=== PATIENT | female | born 1940 | race Caucasian/White ===

== ENCOUNTER → 2016-11-07 | Outpatient (CLI) | payer MEDICARE, OTHER ==
[2015-02-27 15:00] VITALS: BP 132/58
[~2016-11-07] MED LIST: ACET500T33 PO; ASPI81TA50 PO; BUDE10.2 IH; CARV3.122 PO; DIPH25CA58 PO; FOLI20CA PO; GARL5000 PO; HYDR12.53 PO; METF500T4 PO; MOME17SP NS; MULT-393 PO; OMEG1CAP28 PO; OMEP20CA9 PO; Oxycodone Hcl/Acetaminophen PO; PROAIR HFA8.5 GM IH; SIMV40TA3 PO; Sulfamethoxazole/Trimethoprim PO
--- NOTE | 2016-11-07 12:18 | RAD ---
Indication: Renal cyst. Comparison is made with prior renal ultrasound from 02/01/2016. The right kidney measures 12.3 x 5.3 x 5.7 cm and the left kidney measures 11.4 x 4.7 x 6.3 cm. There does appear to be some cortical thinning bilaterally. The partially calcified mass in the lower pole right kidney is again noted measuring approximately 1.3 x 1.5 x 1.9 cm. This compares with 1.7 cm on exam from February 19, 2016. This could be owing to slight differences in measurement technique. No new mass is seen. There is no hydronephrosis. No calculi are seen. The bladder is unremarkable. Impression: Stable complex partially calcified mass in the lower pole the right kidney when compared with examination from 02/01/2016. Continued follow-up is recommended to ensure stability.
== END | disposition home or self-care (01) ==
LOC: US 17:27
PROVIDERS: ATTEND Urology
DX: N28.1 Cyst of kidney, acquired (principal)
CPT/HCPCS: 76770

== ENCOUNTER → 2018-05-28 | Outpatient (CLI) | payer MEDICARE, OTHER ==
[2015-02-27 15:00] VITALS: BP 132/58
[~2018-05-28] MED LIST changes: +CARV3.1210 PO; -CARV3.122 PO; -HYDR12.53 PO; +HYDR12.575 PO; +METF500T16 PO; -METF500T4 PO
[2018-05-28 11:11] LABS: CALCIUM 11.1 mg/dL (8.5-10.1); CREATININE 0.9 mg/dL (0.6-1.0); POTASSIUM 4.5 mmol/L (3.5-5.1)
[2018-05-29 03:15] LABS: CALCIUM PTH 11.1 mg/dL (8.7-10.3); CREATININE PTH 0.74 mg/dL (0.57-1.00); PHOSPHORUS PTH 3.2 mg/dL (2.5-4.5); PTH INTACT 69 pg/mL (15-65)
== END | disposition home or self-care (01) ==
LOC: LAB 10:12
PROVIDERS: ATTEND Family Medicine
DX: E83.52 Hypercalcemia (principal)
CPT/HCPCS: 36415; 80048; 82310; 83970

== ENCOUNTER 2018-06-17 17:26 | Emergency (ER) | payer MEDICARE, OTHER ==
[~2018-06-17] VITALS: Ht 165.1 cm; Wt 104.3 kg
[~2018-06-17 17:26] MED LIST changes: +ALBU2.5V8 IH; -OMEG1CAP28 PO; +OMEP20CA10 PO; -OMEP20CA9 PO; -PROAIR HFA8.5 GM IH
[2018-06-17 18:55] VITALS: BP 175/119
[2018-06-17] MEDS ORDERED: DIPHTH,PERTUSS(ACELL),TET TOX 0.5 ML DISP.SYRIN. VAX IM ONE ×2 (19:28→19:30)
[2018-06-17] MEDS ORDERED: LIDOCAINE 1%/EPI 1:100,000 20 ML VIAL. ONE (19:28)
[2018-06-17] MEDS ORDERED: LIDOCAINE 1% Multi-Dose 20 ML VIAL. INJ ONE (19:30)
[2018-06-17] MEDS ORDERED: LIDOCAINE/EPI/TETRACAINE TOPICAL GEL 3 ML. TP ONE (19:30)
[2018-06-17] MEDS ORDERED: ACETAMINOPHEN 325 MG TABLET. PO ONE (19:30)
--- NOTE | 2018-06-17 22:29 | PHYS DOC ---
Past Medical History Past Medical History: Asthma, Bronchitis, GERD, High Cholesterol, Hypertension Past Surgical History: Knee Replacement, Other Additional Past Surgical Histo: Back surgery x 2. Alcohol Use: None Drug Use: None Adult General Chief Complaint Chief Complaint: MECHANICAL FALL HPI HPI 77-year-old female presents to ER via POV following a mechanical fall. She reports she tripped over a parking block while at a local car dealership causing her to fall forward. Patient presents with forehead laceration, right hand and left knee injuries, with abrasions and contusions. She denies loss of consciousness. She reports she was checked out at the scene by EMS however chose to come to the hospital via private vehicle. He reports somebody from the dealership drove her to the hospital. She is currently denying any dizziness, lightheadedness, nausea, or vision changes. She reports she does have pain at laceration site denies headache or tinnitus. She denies any symptoms prior to the fall. Patient is uncertain of her last tetanus but does not feel it was within the past 5 years. She denies any [id number] medications prior to arrival. Review of Systems Review of Systems Constitutional: Denies fatigue/weakness. Denies LOC Eyes: Denies change in visual acuity, redness, or eye pain [] HENT: Reports head pain at laceration rt forehead. Denies nasal congestion or sore throat. Denies tinnitus Respiratory: Denies cough or shortness of breath [] Cardiovascular: Denies CP/palpitations GI: Denies abdominal pain, nausea, vomiting. Denies incontinence bowel/bladder : Denies urinary sxs Musculoskeletal: Denies back pain. Reports lt knee and rt hand pain. Reports rt side neck pain- denies inability to perform ROM Integument: Denies rash or skin lesions [] Neurologic: Denies headache, focal weakness or sensory changes. Denies dizziness All other systems were reviewed and found to be within normal limits, except as documented in this note. Current Medications Current Medications Current Medications Medications (Trade) Dose Ordered Sig/Jodie Start Time Stop Time Status Last Admin Dose Admin Acetaminophen (Tylenol) 650 mg 1X ONCE 06/17/18 19:30 06/17/18 19:31 DC 06/17/18 19:34 650 MG Diphtheria/ Tetanus/Acell Pertussis (Boostrix) 0.5 ml STK-MED ONCE 06/17/18 19:28 06/17/18 19:30 DC Lidocaine HCl (Lidocaine 1% 20ml Vial) 20 ml 1X ONCE 06/17/18 19:30 06/17/18 19:31 DC 06/17/18 19:30 20 ML Lidocaine/ Epinephrine (LIDOCAINE 1%-EPI 1:100,000 Multi-Dose) 20 ml STK-MED ONCE 06/17/18 19:28 06/17/18 19:30 DC Lidocaine/ Epinephrine (Let Topical) 3 ml 1X ONCE 06/17/18 19:30 18 19:31 DC 06/17/18 19:35 3 ML Allergies Allergies Allergies Coded Allergies Type Severity Reaction Last Updated Verified No Known Drug Allergies 02/13/14 No Physical Exam Physical Exam Constitutional: Well developed, well nourished, no acute distress, non-toxic appearance. [] HENT: Normocephalic, laceration to rt side forehead- no involvement of rt eye. Bilateral external ears normal, oropharynx moist, no oral injuries, nose normal. [] Eyes: 3mm PERRLA, EOMI- no pain with eye movements, no nystagmus, conjunctiva normal, no discharge. [] Neck: Normal range of motion, no tenderness mid cspine- tender on palp. rt lateral neck- no crepitus/palp. deformity, supple, no stridor. Trachea midline Cardiovascular: Heart rate regular rhythm, no murmur [] Lungs & Thorax: Bilateral breath sounds clear to auscultation. Resp. equal/ nonlabored Abdomen: Bowel sounds normal, soft, no tenderness Skin: Warm, dry Back: No tenderness mid line spine on palp. No palp. deformity- full ROM, no CVA tenderness. [] Extremities: Pelvis stable/nontender. No cyanosis, no clubbing, ROM intact. Abrasion to lt anterior knee- no palp. deformity. Pt is able to perform ROM. Swelling/ecchymosis at site. No bleeding. Rt hand palm surface with abrasion- tender on palp. No deformity. Full ROM of rt hand/wrist- pt reports she was bracing herself with rt hand during fall. No active bleeding. 2+ bilat. radial. 2+ bilat. dorsalis pedis/posterior tibial Neurologic: Alert and oriented X 3, normal motor function, normal sensory function, no focal deficits noted. [] Psychologic: Affect normal, judgement normal, mood normal. [] Current Patient Data Vital Signs EKG EKG [] Radiology/Procedures Radiology/Procedures PROCEDURE: CT HEAD AND CERVICAL SPINE WO Examination: CT HEAD AND CERVICAL SPINE WO History: S/P FALL, HEAD AND NECK PAIN Comparison/Correlation: 11/28/2011 CT head without contrast Findings: Axial images of the head and cervical spine were obtained without contrast. Sagittal and coronal reformatted images of the cervical spine were obtained. Left thyroid lobe 1.4 cm diameter nodule is present. Small nodules also seen. Atrophy is present. No intracranial hemorrhage, midline shift, or mass effect. Globes and optic nerves are unremarkable. Soft tissue swelling of the left forehead region is present. Soft tissue gas. There are are few punctate radiopaque foreign bodies at the medial region of soft tissue swelling. Atlantoaxial joint degenerative remodeling is present. Severe degenerative space narrowing from C3 to C7 is present. Effacement of the thecal sac noted due to endplate spurring. Moderate C2-C3 disc space narrowing. Severe bony encroachment on neural foramina is present from C2 to C3. No fracture or bone destruction. Soft tissues are unremarkable. Alignment is unremarkable. Disc osteophyte complex at C3-4 is mild. Impression: No intracranial hemorrhage. Advanced degenerative change of the cervical spine. No acute fracture. No malalignment. Left thyroid lobe nodule. Correlate with recent prior exams if available to assess stability. If stability is unknown, further evaluation with thyroid ultrasound should be considered. Electronically signed by: Darek Espinosa MD (06/17/2018 10:36 PM) [facility] DICTATED and SIGNED BY: CONSTANZA GARZA MD DATE: 06/17/1822280: Laceration Repair by me: Anesthesia: 1% lidocaine locally 2mL Location: Rt side Forehead Foreign body: None detected after copious irrigation and exploration Technique: Simple Interrupted Sutures #6 6.0 nylon Complexity: No subcutaneous sutures/mucosal repair/edge excision Post Closure Length: 4 cm Patient's bleeding was easily controlled in the department and there is no indication of anemia. No evidence of compartment syndrome, neurologic injury, vascular injury, open joint, tendon laceration, or foreign body. Patient is appropriate for outpatient follow up. 48 hour wound check. Scar minimization instructions given. Course & Med Decision Making Course & Med Decision Making Pertinent Labs and Imaging studies reviewed. (See chart for details) Patient was evaluated in the ER following a mechanical fall. Patient presented via POV after being evaluated at the scene by EMS. She denied any loss of consciousness and has had no focal neuro deficits while in the ER. Patient tolerated laceration repair well as right forehead laceration. She has had no change in mental status while in the ER. Patient was offered admission for further monitoring with regards to her head injury as she lives alone. Patient is adamant on home discharge as she has dogs at home and has had no dizziness, confusion, or nausea and vomiting. Patient states she feels comfortable with being discharged home stating if something changes with her condition she would call 911 for assistance. Imaging results were discussed with patient- no acute fxs or findings- degenerative findings reported. Patient is in no visible distress at time of discharge discussion. Education provided on signs and symptoms to return to ER. Discharge instructions were discussed. Patient to follow-up with primary care physician if symptoms persist or with any concerns. Pt was updated on tetanus and provided with dose of tylenol while in the ER. Ice pack was provided for rt hand/lt knee contusion. Pt had steady unassisted gait while in the ER- she remained PMS intact all extremities with full ROM. Dragon Disclaimer Dragon Disclaimer This electronic medical record was generated, in whole or in part, using a voice recognition dictation system. Departure Departure Impression: Primary Impression: Knee contusion Additional Impressions: Fall Head injury Laceration Contusion of hand, right Disposition: 01 HOME, SELF-CARE Condition: STABLE Referrals: LUCIE FULLER MD (PCP) Patient Instructions: Contusion, Fall Prevention and Home Safety, Hand Contusion, Head Injury, Adult, Knee Pain, Sutured Wound Care Additional Instructions: Tylenol as needed for pain control as directed on container. You were given a dose while in the ER. Avoid aspirin and ibuprofen products for 24 hours as it may increased bleeding time. Monitor sutured laceration for signs of infection and you should have sutures removed in 7 days by primary care physician. Ice packs to affected areas every 3-4 hours for 20-30 minutes at a time avoiding direct ice contact with skin. Attending Signature Attending Signature I have reviewed the PA/OCULAR PATHOLOGIST's note and plan of care. I was available for consultation as needed during the patient's visit in the emergency department. I agree with the clinical impression, plan, and disposition. Problem Qualifiers ROSAS LEY APRN Jun 17, 2018 22:29 CRESCENCIO ALDANA DO Oct 17, 2018 11:26
--- NOTE | 2018-06-17 22:40 | RAD ---
Examination: CT HEAD AND CERVICAL SPINE WO History: S/P FALL, HEAD AND NECK PAIN Comparison/Correlation: 11/28/2011 CT head without contrast Findings: Axial images of the head and cervical spine were obtained without contrast. Sagittal and coronal reformatted images of the cervical spine were obtained. Left thyroid lobe 1.4 cm diameter nodule is present. Small nodules also seen. Atrophy is present. No intracranial hemorrhage, midline shift, or mass effect. Globes and optic nerves are unremarkable. Soft tissue swelling of the left forehead region is present. Soft tissue gas. There are are few punctate radiopaque foreign bodies at the medial region of soft tissue swelling. Atlantoaxial joint degenerative remodeling is present. Severe degenerative space narrowing from C3 to C7 is present. Effacement of the thecal sac noted due to endplate spurring. Moderate C2-C3 disc space narrowing. Severe bony encroachment on neural foramina is present from C2 to C3. No fracture or bone destruction. Soft tissues are unremarkable. Alignment is unremarkable. Disc osteophyte complex at C3-4 is mild. Impression: No intracranial hemorrhage. Advanced degenerative change of the cervical spine. No acute fracture. No malalignment. Left thyroid lobe nodule. Correlate with recent prior exams if available to assess stability. If stability is unknown, further evaluation with thyroid ultrasound should be considered. Electronically signed by: Darek Espinosa MD (06/17/2018 10:36 PM) [facility]
--- NOTE | 2018-06-18 07:56 | RAD ---
EXAM: PA, oblique and lateral views of the right hand DATE: 06/17/2018 7:46 PM INDICATION: RIGHT HAND PAIN AROUND 2ND DIGIT AFTER FALL COMPARISON: No Prior FINDINGS: Diffusely decreased bone mineral density. No evidence for acute fracture or dislocation. Chondrocalcinosis TFCC. Moderate thumb CMC and advanced scattered IP joint degenerative changes are seen with extensive proliferative change most prominent at the DIP joints of the middle, ring and small fingers. IMPRESSION: 1. No evidence of acute fracture or dislocation. If there is persistent clinical concern for fracture, follow-up radiographs in 10-14 days is recommended. 2. Decreased bone mineral density. 3. Multifocal degenerative changes most prominent at the thumb CMC and scattered IP joints. Electronically signed by: Darshan Mccrary MD (06/18/2018 7:52 AM) [facility]
--- NOTE | 2018-06-18 08:01 | RAD ---
EXAM: AP, oblique and lateral views of the left knee DATE: 06/17/2018 7:46 PM INDICATION: LEFT LATERAL KNEE PAIN AFTER FALL COMPARISON: No Prior FINDINGS: No evidence of acute fracture or dislocation. A small left knee joint effusion.Left total knee arthroplasty is stable in alignment, without interval hardware complication. Components are well seated without significant periprosthetic lucency. Decreased bone mineral density. IMPRESSION: 1. No evidence of acute fracture or dislocation. 2. Left total knee arthroplasty, grossly stable in alignment without interval hardware complication. Electronically signed by: Darshan Mccrary MD (06/18/2018 7:57 AM) [facility]
[2019-02-06] MEDS ORDERED: HYDR-2761 PO (10:41)
== END 2018-06-17 23:05 | disposition home or self-care (01) ==
LOC: ER 17:26
DX: S01.81XA Laceration without foreign body of other part of head, initial encounter (principal); S80.02XA Contusion of left knee, initial encounter; S60.221A Contusion of right hand, initial encounter; K21.9 Gastro-esophageal reflux disease without esophagitis; E78.00 Pure hypercholesterolemia, unspecified; J45.909 Unspecified asthma, uncomplicated; I10 Essential (primary) hypertension; Z96.659 Presence of unspecified artificial knee joint; W01.0XXA Fall on same level from slipping, tripping and stumbling without subsequent striking against object, initial encounter; Y93.89 Activity, other specified; Y92.89 Other specified places as the place of occurrence of the external cause; Y99.8 Other external cause status
CPT/HCPCS: 12013; 70450; 72125; 73130; 73562; 90471; 90715; 99284-25

== ENCOUNTER → 2018-07-23 | Outpatient (CLI) | payer MEDICARE, OTHER ==
[~2018-07-23] MED LIST changes: +OMEG1CAP28 PO; -OMEP20CA10 PO; +OMEP20CA9 PO
--- NOTE | 2018-07-23 15:44 | RAD ---
THYROID ULTRASOUND: 07/23/2018 12:15 PM Indication: 78 years old Female. Nodule on CT. Comparison: None. FINDINGS: Right lobe: Normal in morphology and echotexture. Size: 4.3 x 1.5 x 1.9 cm Nodules: Multiple thyroid nodules are present with the largest measuring 9 x 7 x 7 mm in inferior right thyroid lobe. This nodule is circumscribed, solid, hypoechoic and taller than it is wide without suspicious echogenic foci. Left lobe: Normal in morphology and echotexture. Size: 3.9 x 1.7 x 1.7 cm. cm Nodules: Multiple thyroid nodules are present. The largest left thyroid nodule measures 16 x 9 x 12 mm and is isoechoic to hyperechoic, well-circumscribed without significant internal echogenic foci. This nodule is taller than it is wide. Findings are moderately suspicious and warrant fine-needle aspiration under ultrasound guidance. There is an additional 14 x 9 x 14 mm nodule with similar findings. Given size, a one-year follow-up ultrasound is recommended. An inferior left thyroid nodule measures 13 x 11 x 13 mm with cystic and solid components. The nodule is well-circumscribed, predominantly hypoechoic with echogenic foci with comet tail artifact. This finding is moderately suspicious and warrants a one-year follow-up ultrasound. Isthmus: 7 mm with subcentimeter thyroid nodule. IMPRESSION: Multiple thyroid nodules are present, the largest of which measures 16 x 9 x 12 mm in the superior pole the left thyroid lobe. Recommend ultrasound-guided fine-needle aspiration of this nodule. Additional nodules may be followed up in one year. Electronically signed by: Cathi Edwards MD (07/23/2018 3:39 PM) [facility]
== END | disposition home or self-care (01) ==
LOC: US 15:09
PROVIDERS: ATTEND Family Medicine
DX: E04.2 Nontoxic multinodular goiter (principal)
CPT/HCPCS: 76536

== ENCOUNTER → 2019-01-29 | Outpatient (CLI) | payer MEDICARE, OTHER ==
[~2019-01-29] MED LIST changes: +HYDR-2761 PO; +OMEP20CA10 PO; -OMEP20CA9 PO
--- NOTE | 2019-01-29 13:57 | EKG ---
[facility] [address] [place] [address] Test Date: 2019-01-29 Test Time: 13:52:34 Pat Name: BOBBY RODRÍGUEZ Department: Room: Gender: F Wrinkle Chaser: KHLOE : 1940 Requested By: YOU CHIRSTIANSON Order Number: [id number] Reading MD: Brandon Otto MD Measurements Intervals [place] Rate: 61 P: 41 [place]: 208 QRS: 44 QRSD: 82 T: 30 QT: 378 QTc: 382 Interpretive Statements SINUS RHYTHM Electronically Signed On 02-03-2019 11:57:40 CDT by Brandon tOto MD
[2019-01-29 14:21] LABS: BASO # 0.1 x10^3/uL (0.0-0.2); BASO % 1 % (0-3); EOS # 0.2 x10^3/uL (0.0-0.7); EOS % 4 % (0-3); HEMATOCRIT 42.2 % (36.0-47.0); HEMOGLOBIN 14.1 g/dL (12.0-15.5); LYMPH # 1.5 x10^3/uL (1.0-4.8); LYMPH % 24 % (24-48); MEAN CORPUSCULAR HEMOGLOBIN 30 pg (25-35); MEAN CORPUSCULAR HGB CONC 34 g/dL (31-37); MEAN CORPUSCULAR VOLUME 91 fL (79-100); MONO # 0.5 x10^3/uL (0.0-1.1); MONO % 9 % (0-9); NEUT # 3.7 x10^3/uL (1.8-7.7); NEUT % 62 % (31-73); PLATELET COUNT 265 x10^3/uL (140-400); RED BLOOD COUNT 4.66 x10^6/uL (3.50-5.40); RED CELL DISTRIBUTION WIDTH 13.4 % (11.5-14.5)
[2019-01-29 14:30] LABS: ALBUMIN 3.6 g/dL (3.4-5.0); CALCIUM 11.1 mg/dL (8.5-10.1); CREATININE 0.8 mg/dL (0.6-1.0); GFR 69.7; POTASSIUM 4.4 mmol/L (3.5-5.1); TOTAL BILIRUBIN 0.5 mg/dL (0.2-1.0); TOTAL PROTEIN 7.3 g/dL (6.4-8.2)
--- NOTE | 2019-02-04 17:25 | HP ---
ADMIT DATE: 02/05/2019 PREOPERATIVE HISTORY AND PHYSICAL DATE OF SURGERY: 02/05/2019. HISTORY OF PRESENT ILLNESS: The patient is a pleasant 78-year-old who 30 years ago underwent lumbar surgery and did well from that. Her current problems of lower back pain and pain in her left more than right hip. She notes numbness in her left foot. Her problems became severe about 9 months ago. She said it began after a fall. Currently, she rates her pain as an 8/10. Standing and walking increases her pain. Sitting helps her with her pain. She had physical therapy in 07/2018 which did not provide her any benefit. PAST MEDICAL HISTORY: Anemia, arthritis, artificial joint, asthma, heart murmur, hypertension, kidney stones. PAST SURGICAL HISTORY: Right knee 2004, left knee in 2007, right shoulder in 2010, back surgery 35 years ago. FAMILY HISTORY: Diabetes and heart problems and disease, hypertension. SOCIAL HISTORY: Retired. . Denies substance abuse. Drinks alcohol 1-2 times per year. Drinks coffee, tea and soda daily. ALLERGIES: No known drug allergies. CURRENT MEDICATIONS: Simvastatin, hydrochlorothiazide, omeprazole, vitamin D3, carvedilol, ProAir HFA, aspirin, fish oil, Centrum adult, CVS allergy relief, and Tylenol. REVIEW OF SYSTEMS: A 12-point review of systems was obtained and is noncontributory except for that mentioned above. PHYSICAL EXAMINATION: NEUROSURGERY EXAMINATION: GENERAL APPEARANCE: Alert, pleasant, no acute distress. HEAD: Normocephalic and atraumatic. SKIN: Warm and dry. MUSCULOSKELETAL: Lumbar paraspinal muscle bulk is normal, restricted range of motion of lumbar spine, mnva-[id number]-[id number] tenderness of lower lumbar spine with palpation, normal range of motion of the lower extremities bilaterally. EXTREMITIES: No clubbing, cyanosis, or edema. NEUROLOGIC: Alert and oriented x 3, normal recent and remote memory. Strength 5/5 in bilateral lower extremities, sensory was intact to light touch in bilateral lower extremities, reflexes were present and symmetric in lower extremities bilaterally, negative straight leg raising bilaterally, normal gait. IMAGING: I reviewed a lumbar MRI scan. On that study, the principal abnormalities are at L3-L4. At that level, there is significant lumbar spinal stenosis. There is lateral recess narrowing bilaterally, but worse on the left side. She also has postoperative changes at L4-L5 and a small synovial cyst on the left L4-L5. Changes at this level are much more mild. PLAN: I believe the majority of her symptoms are related to lumbar spinal stenosis at L3-L4. My feeling is that she should undergo lumbar microdecompressive surgery at this level. I would perform a left direct laminectomy along with opening of the lateral recess on the left. I did discuss this with her in detail. She understands. She would like to go ahead. We will make the arrangements. YOU CHRISTIANSON MD DR: JONN/jean-paul JOB#: [id number] / [id number] JESSICA
== END | disposition home or self-care (01) ==
LOC: SURGPAT 12:53
PROVIDERS: ATTEND Pediatrics
DX: Z01.818 Encounter for other preprocedural examination (principal); M48.061 Spinal stenosis, lumbar region without neurogenic claudication; M71.38 Other bursal cyst, other site; I10 Essential (primary) hypertension; M19.90 Unspecified osteoarthritis, unspecified site; J45.909 Unspecified asthma, uncomplicated; Z86.2 Personal history of diseases of the blood and blood-forming organs and certain disorders involving the immune mechanism; Z82.49 Family history of ischemic heart disease and other diseases of the circulatory system; Z83.3 Family history of diabetes mellitus
CPT/HCPCS: 36415; 80053; 85025; 87641; 93005

== ENCOUNTER 2019-02-05 10:09 | Observation (INO) | payer MEDICARE, OTHER ==
[2019-02-05] VITALS (9 sets, daily range): BP systolic 120–150; BP diastolic 68–74
[~2019-02-05 10:09] MED LIST changes: -HYDR-2761 PO; +KETOROLAC 60 MG/2 ML INJ FOR OR. ONE; -OMEG1CAP28 PO; +THROMBIN TOPICAL 20,000 UNIT SPRAY.SYRN KIT TP ONE
[2019-02-05] MEDS ORDERED: IV RINGERS,LACTATED 1000ML 1,000 ML IV SCH (10:23)
[2019-02-05] MEDS ORDERED: PROCHLORPERAZINE 10 MG/2 ML VIAL. IV PRN (10:30)
[2019-02-05] MEDS ORDERED: ONDANSETRON PF 4 MG/2 ML VIAL. IV PRN ×2 (10:30→15:00)
[2019-02-05] MEDS ORDERED: MORPHINE SULFATE 2 MG/ML VIAL. IV PRN (10:30)
[2019-02-05] MEDS ORDERED: BUPIVACAINE-EPI 0.25%-1:200000 MPF 30 ML VIAL. IJ ONE (10:30)
[2019-02-05] MEDS ORDERED: LIDOCAINE 1% PF 2 ML VIAL. ID PRN (10:30)
[2019-02-05] MEDS ORDERED: HYDROmorphone 2 MG/ML VIAL IV PRN (10:30)
[2019-02-05] MEDS ORDERED: fentaNYL PF VIAL 100 MCG/2 ML VIAL IV PRN ×3 (10:30→15:00)
[2019-02-05] MEDS ORDERED: BACITRACIN 50,000 UNIT in IV NORMAL SALINE 1000ML BAG 1,000 ML IRR ONE (10:30)
[2019-02-05] MEDS ORDERED: IPRATRPIUM/ALBUTEROL 0.5/2.5MG 3 ML NEBU. NEB ONE (11:00)
[2019-02-05] MEDS ORDERED: PROPOFOL 20 ML IV ONE (11:39)
[2019-02-05] MEDS ORDERED: LIDOCAINE 2% PF 5 ML VIAL. ONE (11:40)
[2019-02-05] MEDS ORDERED: ONDANSETRON PF 4 MG/2 ML VIAL. ONE (11:41)
[2019-02-05] MEDS ORDERED: PHENYLEPHRINE 10 MG/ML VIAL. ONE (11:41)
[2019-02-05] MEDS ORDERED: DEXAMETHASONE SOD PHOS 20 MG/5 ML VIAL. ONE (11:41)
[2019-02-05] MEDS ORDERED: ROCURONIUM 50 MG/5 ML VIAL. ONE (11:42)
[2019-02-05] MEDS ORDERED: REMIFENTANIL 2 MG VIAL. IV ONE (11:42)
[2019-02-05] MEDS ORDERED: PROPOFOL 50 ML IV ONE ×2 (11:42→14:02)
[2019-02-05] MEDS ORDERED: 0.9 % SODIUM CHLORIDE 20 ML VIAL. IJ ONE (11:42)
[2019-02-05] MEDS ORDERED: MINERAL OIL/PETROLATUM,WHITE OPHTH OINT 3.5GM TUBE. ONE (11:43)
[2019-02-05] MEDS ORDERED: GLYCOPYRROLATE 1 MG/5 ML VIAL. ONE (12:28)
[2019-02-05] MEDS ORDERED: SURGICEL FIBRILLAR 1X2 EACH. ONE (12:45)
[2019-02-05] MEDS ORDERED: NEOSTIGMINE METHYLSULFATE 5 MG/5 ML SYRINGE. ONE (13:55)
[2019-02-05] MEDS ORDERED: DESFLURANE 61 TO 120 MINUTES IH ONE (14:00)
[2019-02-05] MEDS ORDERED: fentaNYL PF VIAL 100 MCG/2 ML VIAL ONE (14:03)
[2019-02-05] MEDS ORDERED: ePHEDrine PF IN SALINE 50 MG/10 ML SYRINGE. IV ONE (14:06)
[2019-02-05] MEDS ORDERED: MAG HYDROX/ALUMINUM HYD/SIMETH 30 ML ORAL.SUSP PO PRN (15:00)
[2019-02-05] MEDS ORDERED: 0.9 % SODIUM CHLORIDE 10 ML DISP.SYRIN. IV PRN (15:00)
[2019-02-05] MEDS ORDERED: CALCIUM CARBONATE 500 MG TAB.CHEW PO PRN (15:00)
[2019-02-05] MEDS ORDERED: NALOXONE 0.4 MG/ML VIAL. IV PRN (15:00)
[2019-02-05] MEDS ORDERED: ALBUTEROL SULFATE 2.5 MG/3 ML NEBU. NEB PRN (15:00)
[2019-02-05] MEDS ORDERED: MAGNESIUM HYDROXIDE 2,400 MG/30 ML ORAL.SUSP. PO PRN (15:00)
[2019-02-05] MEDS ORDERED: HYDROcodone/APAP 5/325MG 1 TAB TABLET PO PRN ×2 (15:00)
[2019-02-05] MEDS ORDERED: diphenhydrAMINE HCL 25 MG CAPSULE PO PRN ×2 (15:00)
[2019-02-05] MEDS ORDERED: METHOCARBAMOL 750 MG TABLET PO PRN (15:00)
--- NOTE | 2019-02-05 16:00 | OP ---
DATE OF SURGERY: 02/05/2019 PREOPERATIVE DIAGNOSES: Lumbar spinal stenosis, L3-L4 with left lumbar radiculopathy. POSTOPERATIVE DIAGNOSES: Lumbar spinal stenosis, L3-L4 with left lumbar radiculopathy. OPERATION PERFORMED: Lumbar laminectomy, left direct, L3-L4. The operation was done with EMG monitoring, fluoroscopy, microscopic dissection. SURGEON: Beni Christianson M.D. FIELD LABORATORY OPERATOR: ANTONIA Tobias assisted with the surgery. She assisted with the exposure, the microdecompression as well as the closure. OPERATIVE INDICATIONS: The patient is a pleasant 78-year-old woman who developed intractable back and leg pain, which failed conservative measures. On imaging studies, she had above-mentioned findings. She has undergone surgery before at the level inferiorly but at this point, I felt the major problems were at L3-L4 and I recommended a left direct laminectomy to decompress this region and see if this would not help her. She understood the surgery and risks, she understood the technique of the operation, she wished to go ahead. DESCRIPTION OF PROCEDURE: Under general endotracheal anesthesia, the patient was positioned prone on the Luciano table. Lumbar region prepped and draped in standard fashion. OMID hose and AV impulse boots were applied for DVT prophylaxis. A microscope was draped. Fluoroscopy was draped and brought into field. Monitoring was established. Ancef 2 grams was given less than 1 hour prior to initiation of the surgery. Using fluoroscopic guidance, a midline incision was made directly over the L3-L4 interspace. I dissected down through skin and subcutaneous tissue and reflected the paraspinal muscles. I placed a [place] micro disc retractor, brought in the microscope. Using the high speed air drill, I burred the midline out laterally, left side and drilled the lamina down of L3 and L4 above and below the disc space. I peeled away very thickened ligamentum flavum, which was badly degenerated. There was also extreme hypertrophy of the facet, which I trimmed away. I performed a partial foraminotomy and visualized the L4 root. I peeled away the very thickened ligamentum flavum and performed a wide decompression. I tilted the patient away from me and worked across the midline and decompressed. I irrigated copiously with antibiotic solution. I worked and obtained excellent hemostasis by using a combination of bipolar cautery, FloSeal and bone wax. At this point, then I had an excellent decompression. I removed the retractor and obtained hemostasis in the muscle and I closed the wound in layers with absorbable suture and skin was closed with 4-0 subcuticular stitch. The operation went very well and I was quite pleased with the surgery. BENI CHRISTIANSON MD DR: JONN/jean-paul JOB#: [id number] / [id number] JESSICA
[2019-02-05] MEDS: POTASSIUM CL 20MEQ D5-0.45NACL 1,000 ML IV SCH (17:00)
[2019-02-05] MEDS: CARVEDILOL 3.125 MG TABLET. PO SCH (17:01)
[2019-02-05] MEDS: ALBUTEROL SULFATE 2.5 MG/3 ML NEBU. NEB SCH (20:28)
[2019-02-05] MEDS: BUDESONIDE 0.5 MG/2 ML NEBU. NEB SCH (20:28)
[2019-02-05] MEDS: DOCUSATE SODIUM 100 MG CAPSULE. PO SCH (20:59)
[2019-02-05] MEDS ORDERED: NON FORMULARY ITEM (Budesonide/Formoterol Fumarate (Symbicort 160-4.5 Mcg Inhaler) 2 PUFF) IH SCH (21:00)
[2019-02-05] MEDS ORDERED: SIMVASTATIN 40 MG TABLET. PO SCH (21:00)
[2019-02-06 03:00] VITALS: BP 143/64
[2019-02-06] MEDS: ACETAMINOPHEN 325 MG TABLET. PO PRN ×2 (03:21→08:57)
[2019-02-06] MEDS: POTASSIUM CL 20MEQ D5-0.45NACL 1,000 ML IV SCH (06:20)
[2019-02-06 06:34] VITALS: BP 148/66
[2019-02-06] MEDS: BUDESONIDE 0.5 MG/2 ML NEBU. NEB SCH (07:27)
[2019-02-06] MEDS: ALBUTEROL SULFATE 2.5 MG/3 ML NEBU. NEB SCH ×2 (07:27→12:09)
[2019-02-06] MEDS ORDERED: PANTOPRAZOLE 40 MG TABLET.DR. PO SCH (07:30)
[2019-02-06] MEDS: DOCUSATE SODIUM 100 MG CAPSULE. PO SCH (08:43)
[2019-02-06] MEDS: CARVEDILOL 3.125 MG TABLET. PO SCH (08:44)
[2019-02-06] MEDS ORDERED: ASPIRIN ENTERIC COATED 81 MG TABLET.DR. PO SCH (09:00)
[2019-02-06] MEDS ORDERED: FLUTICASONE 50MCG/NASAL SPRAY 16GM BOTTLE. NS SCH (09:00)
[2019-02-06] MEDS ORDERED: hydroCHLOROthiazide 12.5 MG CAPSULE PO SCH (09:00)
[2019-02-06] MEDS ORDERED: HYDR-2761 PO (10:41)
--- NOTE | 2019-02-06 10:42 | DISCH ---
DISCHARGE INSTRUCTIONS Condition on Discharge Condition on Discharge: Stable Activity After Discharge Activity Instructions for Disc: Activity as tolerated, Avoid exertion Bathing Instructions: Shower-keep dressing dry Lifting Instructions after Dis: No heavy lifting, No pulling or pushing, Do not lift >10 pounds Exercise Instruction after Dis: Progress as tolerated Weight Bearing Status after Di: No restrictions Diet after Discharge Diet after Discharge: Cardiac Additional Diet Restrictions: resume home diet Wound Incision Care Wound/Incision Care: Ice to area for comfort Other wound/incision instructi: may remove dressing in 48 hours if dry then may shower, no soaking Contacting the DRAlex after DC Call your doctor for: Concerns you may have Follow-Up Follow up with: Dr. Christianson's nurse in 2 weeks [phone] Treatment/Equipment after DC Adaptive Equipment Issued: None Discharge Respiratory Equipmen: Oxygen YOU CHRISTIANSON MD Feb 06, 2019 10:42
[2019-02-06 11:30] VITALS: BP 126/62
--- NOTE | 2019-02-06 13:05 | PDOC ---
PROGRESS NOTES Subjective Subjective POD #1 pain improved has been up ambulating Objective Objective Vital Signs Date Time Temp Pulse Resp B/P (MAP) Pulse Ox O2 Delivery O2 Flow Rate FiO2 02/06/19 11:30 98.8 75 18 126/62 (83) 91 Room Air 98.8 02/06/19 07:30 2.0 Intake and Output 02/06/19 07:00 Intake Total 1080 ml Output Total 320 ml Balance 760 ml Intake Oral 1080 ml Output Urine Total 300 ml Estimated Blood Loss 20 ml # Voids 2 Physical Exam General: Alert, Oriented X3, Cooperative, No acute distress MUSCULOSKELETAL: Other (WYMAN) Skin: Other (dressing C,D,I) Assessment Assessment Problems Medical Problems: (1) Spinal stenosis of lumbar region with neurogenic claudication Status: Chronic Plan Plan of Care dc home today f/u 2 weeks Comment Review of Relevant I have reviewed the following items tor (where applicable) has been applied. Medications Current Medications Bacitracin 55302 unit/Sodium Chloride 1,000 ml @ 1,000 mls/hr 1X ONCE IRR Last administered on 02/05/19at 13:09; Start 02/05/19 at 10:30; Stop 02/05/19 at 11:29; Status DC Ketorolac Tromethamine (Toradol For Or Only) 60 mg STK-MED ONCE .ROUTE Last administered on 02/05/19at 13:09; Start 02/05/19 at 09:18; Stop 02/05/19 at 10:18; Status DC Thrombin 20,000 unit STK-MED ONCE TP ; Start 02/05/19 at 09:18; Stop 02/05/19 at 10:18; Status DC Bupivacaine HCl/ Epinephrine Bitart (Sensorcaine-Epi 0.25%-1:348919 Mpf) 30 ml 1X ONCE IJ Last administered on 02/05/19at 13:09; Start 02/05/19 at 10:30; Stop 02/05/19 at 10:31; Status DC Ondansetron HCl (Zofran) 4 mg PRN Q6HRS PRN IV NAUSEA/VOMITING; Start 02/05/19 at 10:30; Stop 02/05/19 at 16:22; Status DC Fentanyl Citrate (Fentanyl 2ml Vial) 25 mcg PRN Q5MIN PRN IV MILD PAIN 1-3; Start 02/05/19 at 10:30; Stop 02/06/19 at 10:29; Status DC Fentanyl Citrate (Fentanyl 2ml Vial) 50 mcg PRN Q5MIN PRN IV MODERATE TO SEVERE PAIN; Start 02/05/19 at 10:30; Stop 02/06/19 at 10:29; Status DC Morphine Sulfate (Morphine Sulfate) 1 mg PRN Q10MIN PRN IV SEVERE PAIN 7-10; Start 02/05/19 at 10:30; Stop 02/06/19 at 10:29; Status DC Ringer's Solution 1,000 ml @ 30 mls/hr Q24H IV Last administered on 02/05/19at 10:51; Start 02/05/19 at 10:23; Stop 02/05/19 at 22:22; Status DC Lidocaine HCl (Xylocaine-Mpf 1% 2ml Vial) 2 ml PRN 1X PRN ID PRIOR TO IV START; Start 02/05/19 at 10:30; Stop 02/06/19 at 10:29; Status DC Hydromorphone HCl (Dilaudid) 0.5 mg PRN Q10MIN PRN IV SEV PAIN, Second choice; Start 02/05/19 at 10:30; Stop 02/06/19 at 10:29; Status DC Prochlorperazine Edisylate (Compazine) 5 mg PACU PRN PRN IV NAUSEA, MRX1; Start 02/05/19 at 10:30; Stop 02/06/19 at 10:29; Status DC Cefazolin Sodium/ Dextrose 50 ml @ 100 mls/hr 1X ONCE IV Last administered on 02/05/19at 14:02; Start 02/05/19 at 11:00; Stop 02/05/19 at 11:29; Status DC Albuterol/ Ipratropium (Duoneb) 3 ml 1X ONCE NEB Last administered on 02/05/19at 11:17; Start 02/05/19 at 11:00; Stop 02/05/19 at 11:01; Status DC Propofol 20 ml @ As Directed STK-MED ONCE IV ; Start 02/05/19 at 11:39; Stop 02/05/19 at 11:40; Status DC Lidocaine HCl (Lidocaine Pf 2% Vial) 5 ml STK-MED ONCE .ROUTE ; Start 02/05/19 at 11:40; Stop 02/05/19 at 11:40; Status DC Dexamethasone Sodium Phosphate (Decadron) 20 mg STK-MED ONCE .ROUTE ; Start 02/05/19 at 11:41; Stop 02/05/19 at 11:41; Status DC Ondansetron HCl (Zofran) 4 mg STK-MED ONCE .ROUTE ; Start 02/05/19 at 11:41; Stop 02/05/19 at 11:42; Status DC Phenylephrine HCl (Pieter-Synephrine Inj) 10 mg STK-MED ONCE .ROUTE ; Start 02/05/19 at 11:41; Stop 02/05/19 at 11:42; Status DC Rocuronium Cal[place]oun (Zemuron) 50 mg STK-MED ONCE .ROUTE ; Start 02/05/19 at 11:42; Stop 02/05/19 at 11:42; Status DC Remifentanil HCl (Ultiva) 2 mg STK-MED ONCE IV ; Start 02/05/19 at 11:42; Stop 02/05/19 at 11:42; Status DC Propofol 50 ml @ As Directed STK-MED ONCE IV ; Start 02/05/19 at 11:42; Stop 02/05/19 at 11:43; Status DC Sodium Chloride (SODIUM CHLORIDE 20ml) 20 ml STK-MED ONCE IJ ; Start 02/05/19 at 11:42; Stop 02/05/19 at 11:43; Status DC Multi-Ingred Cream/Lotion/Oil/ Oint (Artificial Tears Eye Ointment) 7 jeanine STK- MED ONCE .ROUTE ; Start 02/05/19 at 11:43; Stop 02/05/19 at 11:43; Status DC Glycopyrrolate (Robinul) 1 mg STK-MED ONCE .ROUTE ; Start 02/05/19 at 12:28; Stop 02/05/19 at 12:29; Status DC Cellulose (Surgicel Fibrillar 1x2) 1 each STK-MED ONCE .ROUTE Last administered on 02/05/19at 13:48; Start 02/05/19 at 12:45; Stop 02/05/19 at 13:46; Status DC Neostigmine Methylsulfate (Neostigmine Methylsulfate) 5 mg STK-MED ONCE .ROUTE ; Start 02/05/19 at 13:55; Stop 02/05/19 at 13:56; Status DC Desflurane (Suprane) 60 ml STK-MED ONCE IH ; Start 02/05/19 at 14:00; Stop 02/05/19 at 14:00; Status DC Propofol 50 ml @ As Directed STK-MED ONCE IV ; Start 02/05/19 at 14:02; Stop 02/05/19 at 14:02; Status DC Fentanyl Citrate (Fentanyl 2ml Vial) 100 mcg STK-MED ONCE .ROUTE ; Start 02/05/19 at 14:03; Stop 02/05/19 at 14:03; Status DC Ephedrine Sulfate (ePHEDrine PF IN SALINE SYRINGE) 50 mg STK-MED ONCE IV ; Start 02/05/19 at 14:06; Stop 02/05/19 at 14:07; Status DC Albuterol Sulfate (Ventolin Neb Soln) 2.5 mg PRN Q4HRS PRN NEB SHORTNESS OF CARA ATH; Start 02/05/19 at 15:00 Aspirin (Ecotrin) 81 mg DAILY PO Last administered on 02/06/19at 08:44; Start 02/06/19 at 09:00 Carvedilol (Coreg) 3.125 mg BIDWMEALS PO Last administered on 02/06/19at 08:44; Start 02/05/19 at 17:00 Diphenhydramine HCl (Benadryl) 25 mg QHS PRN PO INSOMNIA; Start 02/05/19 at 15:00 Hydrochlorothiazide (Microzide) 12.5 mg DAILY PO Last administered on 02/06/19at 08:44; Start 02/06/19 at 09:00 Simvastatin (Zocor) 40 mg QHS PO Last administered on 02/05/19at 21:01; Start 02/05/19 at 21:00 Non-Formulary Medication (Budesonide/ Formoterol Fumarate (Symbicort 160-4.5 Mcg Inhaler)) 2 puff BID IH ; Start 02/05/19 at 21:00; Status UNV Fluticasone Propionate (Flonase) 2 spray DAILY NS ; Start 02/06/19 at 09:00 Pantoprazole Sodium (Protonix) 40 mg DAILYAC PO Last administered on 02/06/19at 06:21; Start 02/06/19 at 07:30 Fentanyl Citrate (Fentanyl 2ml Vial) 50 mcg PRN Q2HR PRN IV PAIN; Start 02/05/19 at 15:00 Acetaminophen (Tylenol) 650 mg PRN Q6HRS PRN PO MILD PAIN / TEMP Last administered on 02/06/19at 08:57; Start 02/05/19 at 15:00 Al Hydroxide/Mg Hydroxide (Mylanta Plus Xs) 30 ml PRN Q3HRS PRN PO HEARTBURN / GAS; Start 02/05/19 at 15:00 Calcium Carbonate/ Glycine (Tums) 500 mg PRN Q3HRS PRN PO INDIGESTION; Start 02/05/19 at 15:00 Diphenhydramine HCl (Benadryl) 25 mg PRN Q6HRS PRN PO ITCHING; Start 02/05/19 at 15:00 Naloxone HCl (Narcan) 0.1 mg PRN Q2MIN PRN IV ADMIN; Start 02/05/19 at 15:00 Sodium Chloride (Normal Saline Flush) 3 ml QSHIFT PRN IV AFTER MEDS AND BLOOD DRAWS; Start 02/05/19 at 15:00 Potassium Chloride/Dextrose/ Sod Cl 1,000 ml @ 75 mls/hr [id number] IV ; Start 02/05/19 at 17:00 Acetaminophen/ Hydrocodone Bitart (Lortab 5/325) 1 tab PRN Q4HRS PRN PO MILD PAIN 1-3; Start 02/05/19 at 15:00 Acetaminophen/ Hydrocodone Bitart (Lortab 5/325) 2 tab PRN Q4HRS PRN PO MODERATE PAIN, SEVERE PAIN; Start 02/05/19 at 15:00 Methocarbamol (Robaxin) 750 mg PRN TID PRN PO MUSCLE SPASMS; Start 02/05/19 at 15:00 Docusate Sodium (Colace) 100 mg BID PO Last administered on 02/06/19at 08:44; Start 02/05/19 at 21:00 Magnesium Hydroxide (Milk Of Magnesia) 2,400 mg PRN Q12HR PRN PO CONSTIPATION; Start 02/05/19 at 15:00 Ondansetron HCl (Zofran) 4 mg PRN Q6HRS PRN IV NAUESA, 1ST CHOICE; Start 02/05/19 at 15:00 Albuterol Sulfate (Ventolin Neb Soln) 2.5 mg RTQID NEB Last administered on 02/06/19at 12:09; Start 02/05/19 at 20:00 Budesonide (Pulmicort) 0.5 mg RTBID NEB Last administered on 02/06/19at 07:28; Start 02/05/19 at 20:00 Active Scripts Active Hydrocodone-Apap 5-325 (Hydrocodone Bit/Acetaminophen) 1 Tab Tablet 1 Tab PO PRN Q4HRS PRN Reported Aspir-Low (Aspirin) 81 Mg Tablet. 1 Tab PO DAILY Tylenol Extra Strength (Acetaminophen) 500 Mg Tablet 500 Mg PO PRN Q4-6HRS PRN Fish Oil 1,200 Mg Softgel ([place]-3 Fatty Acids/Fish Oil) 1 Each Capsule 1 Each PO DAILYWSUP Spectravite (Multivits W-Iron,Hematinic) 1 Each Tablet 1 Each PO DAILY Benadryl (Diphenhydramine Hcl) 25 Mg Capsule 1 Cap PO QHS PRN only takes when she gets congested or itchy Proair Hfa Inhaler (Albuterol Sulfate) 8.5 Gm Hfa.aer.ad 2 Puff IH PRN Q4-6HRS Symbicort 160-4.5 Mcg Inhaler (Budesonide/Formoterol Fumarate) 10.2 Gm Hfa.aer.ad 2 Puff IH BID Nasonex (Mometasone Furoate) 17 Gm [place].pump 1 [place] NS DAILY Simvastatin 40 Mg Tablet 1 Tab PO QHS Hydrochlorothiazide Capsule (Hydrochlorothiazide) 12.5 Mg Capsule 1 Cap PO DAILY Omeprazole 20 Mg Capsule. 1 Cap PO DAILY Carvedilol (Carvedilol) 3.125 Mg Tablet 1 Tab PO BID Vitals/I & O Vital Sign - Last 24 Hours 02/05/19 02/05/19 02/05/19 02/05/19 14:21 14:21 14:40 15:10 Temp 98.3 98.3 98.3 98.3 98.3 98.3 Pulse 76 68 68 Resp 16 16 16 B/P (MAP) 154/83 158/90 141/87 Pulse Ox 95 94 94 O2 Delivery Mask Simple Mask Nasal Cannula Nasal Cannula Simple Mask O2 Flow Rate 8 8 2 2 02/05/19 02/05/19 02/05/19 02/05/19 15:25 16:00 16:10 16:15 Temp 98.3 98.2 98.3 98.2 Pulse 64 73 71 Resp 15 20 B/P (MAP) 130/65 142/72 (95) 139/74 (95) Pulse Ox 93 95 O2 Delivery Nasal Cannula Nasal Cannula Mask O2 Flow Rate 2 2.0 2.0 02/05/19 02/05/19 02/05/19 02/05/19 16:30 16:45 17:01 17:15 Temp 97.6 97.6 Pulse 70 71 Resp 18 B/P (MAP) 150/68 (95) 141/71 (94) 150/58 125/74 (91) Pulse Ox 94 O2 Delivery Nasal Cannula O2 Flow Rate 2.0 02/05/19 02/05/19 02/05/19 02/05/19 17:45 18:44 19:50 20:00 Temp 98.0 98.2 98.3 98.0 98.2 98.3 Pulse 74 70 92 Resp 18 20 22 B/P (MAP) 123/72 (89) 120/74 (89) 138/73 (94) Pulse Ox 93 93 88 O2 Delivery Nasal Cannula Nasal Cannula Room Air Room Air O2 Flow Rate 2.0 2.0 02/05/19 02/05/19 02/05/19 02/06/19 20:29 20:35 23:00 03:00 Temp 98.2 98.1 98.2 98.1 Pulse 80 85 Resp 24 22 B/P (MAP) 141/69 (93) 143/64 (90) Pulse Ox 92 92 90 90 O2 Delivery Nasal Cannula Nasal Cannula Room Air Room Air O2 Flow Rate 2.0 2.0 02/06/19 02/06/19 02/06/19 02/06/19 06:34 07:27 07:30 08:00 Temp 97.4 97.4 Pulse 74 Resp 20 B/P (MAP) 148/66 (93) Pulse Ox 90 92 92 O2 Delivery Room Air Nasal Cannula Nasal Cannula Room Air O2 Flow Rate 2.0 2.0 02/06/19 02/06/19 08:44 11:30 Temp 98.8 98.8 Pulse 87 75 Resp 18 B/P (MAP) 120/57 126/62 (83) Pulse Ox 91 O2 Delivery Room Air Intake and Output 02/05/19 02/05/1919 15:00 23:00 07:00 Intake Total 1080 ml Output Total 20 ml 300 ml Balance -20 ml 780 ml YOU CHRISTIANSON MD Feb 06, 2019 13:05
[2019-02-06] MEDS ORDERED: OMEG1CAP28 PO (17:23)
--- NOTE | 2019-02-07 14:07 | PATHOLOGY ---
[facility] Accession Number: [id number] . 01 Material submitted: . vertebral column - LUMBAR DECOMPRESSION . 01 Clinical history: . Lumbar stenosis . 02 Diagnosis: Segments of fibrocartilaginous, adipose, and skeletal muscle tissue and bone, lumbar decompression: - Degenerative changes of fibrocartilaginous tissue. (JPM:[facility] 02/07/2019) [facility]/02/07/2019 . 02 Comment: There is no evidence of an acute inflammatory process or malignancy. (JP:[facility] 02/07/2019) . 02 Electronically signed: . Anthony Maurer MD, Pathologist NPI- [id number] . 01 Gross description: . The specimen is received in formalin, labeled "Ladonna John, lumbar decompression", are multiple irregular fragments of caban-yellow and gritty tissue possibly admixed with bone spicule measuring 3.7 x 3.0 x 1.0 cm in aggregate. Representatively submitted in A1, after decalcification. ([facility]; 02/05/2019) SHS/SHS . 02 Pathologist provided ICD-10: M99.73 . 02 CPT . 951685, 998367 Specimen Comment: A courtesy copy of this report has been sent to Specimen Comment: [phone], . Specimen Comment: Report sent to / DR FULLER Performed at: 01 [facility] [address], [place] [id number] MD Bassam Hand MD Phone: [phone] Performed at: 02 [facility] [address], [place] [id number] MD Anthony Maurer MD Phone: [phone]
== END 2019-02-06 15:29 | disposition home or self-care (01) ==
LOC: SURG 10:09 → 4 SOUTHEST 16:17
PROVIDERS: ADMIT Neurological Surgery; ATTEND Neurological Surgery
DX: M48.062 Spinal stenosis, lumbar region with neurogenic claudication (principal); M19.90 Unspecified osteoarthritis, unspecified site; J45.909 Unspecified asthma, uncomplicated; I10 Essential (primary) hypertension; Z98.890 Other specified postprocedural states; M54.16 Radiculopathy, lumbar region
CPT/HCPCS: 63030; 76000; 88304; 88311; 94640; 94760; 97116; 97162; 97530; A7015; G0378; G0379; J0171; J0696; J1100; J1885; J2001; J2405; J2704; J2710; J3490; J7030; J7613; J7626; J3010

== ENCOUNTER → 2019-03-18 | Outpatient (CLI) | payer MEDICARE, OTHER ==
[~2019-03-18] MED LIST changes: +HYDR-2761 PO; -KETOROLAC 60 MG/2 ML INJ FOR OR. ONE; +OMEG1CAP28 PO; -THROMBIN TOPICAL 20,000 UNIT SPRAY.SYRN KIT TP ONE
--- NOTE | 2019-03-18 17:30 | RAD ---
CHEST PA LATERAL History: Cough for several weeks. COMPARISON: Image from 01/30/2014 without report. Cardiomediastinal silhouette appears stable, not grossly enlarged. No evidence of pneumothorax. No large pleural effusion. Mild reticular opacities are again seen, likely atelectasis and/or fibrosis. There is some lucency and soft tissue density in the retrocardiac region, likely a hiatal hernia with stomach in the lower chest. Similar finding was seen previously. No definite consolidating infiltrate but could be difficult to exclude in the left lower lobe. IMPRESSION: 1. Retrocardiac opacity is again seen, most likely a hiatal hernia. 2. No definite consolidating infiltrate but difficult to exclude in the left lower lobe. 3. Mild reticular opacities compatible with atelectasis and/or fibrosis. Electronically signed by: Garo Mcginnis MD (03/18/2019 5:27 PM) [facility]
== END | disposition home or self-care (01) ==
LOC: RAD 10:57
PROVIDERS: ATTEND Internal Medicine Pulmonary Disease
DX: R05 Cough (principal)
CPT/HCPCS: 71046

== ENCOUNTER → 2021-01-18 | Outpatient (CLI) | payer MEDICARE, OTHER ==
[~2021-01-18] MED LIST changes: -FOLI20CA PO; +FOLIC ACID20 MG PO; -OMEP20CA10 PO; +OMEP20CA16 PO; +SIMV40TA18 PO; -SIMV40TA3 PO
[2021-01-18 14:06] LABS: BASO # 0.1 x10^3/uL (0.0-0.2); BASO % 1 % (0-3); EOS # 0.3 x10^3/uL (0.0-0.7); EOS % 5 % (0-3); HEMATOCRIT 39.3 % (36.0-47.0); HEMOGLOBIN 12.4 g/dL (12.0-15.5); LYMPH # 1.3 x10^3/uL (1.0-4.8); LYMPH % 24 % (24-48); MEAN CORPUSCULAR HEMOGLOBIN 23 pg (25-35); MEAN CORPUSCULAR HGB CONC 32 g/dL (31-37); MEAN CORPUSCULAR VOLUME 74 fL (79-100); MONO # 0.5 x10^3/uL (0.0-1.1); MONO % 8 % (0-9); NEUT # 3.4 x10^3/uL (1.8-7.7); NEUT % 62 % (31-73); PLATELET COUNT 278 x10^3/uL (140-400); RED BLOOD COUNT 5.28 x10^6/uL (3.50-5.40); RED CELL DISTRIBUTION WIDTH 30.2 % (11.5-14.5); WHITE BLOOD COUNT 5.5 x10^3/uL (4.0-11.0)
[2021-01-18 14:36] LABS: CALCIUM 11.3 mg/dL (8.5-10.1); CREATININE 0.7 mg/dL (0.6-1.0); GFR 80.9
[2021-01-18 14:38] LABS: PLT ESTIMATE ADEQUATE (ADEQUATE)
[2021-01-18 14:39] LABS: ANISOCYTOSIS MARKED
[2021-01-18 14:40] LABS: HYPOCHROMIA SLIGHT; POLYCHROMASIA SLIGHT
[2021-01-18 14:57] LABS: ALBUMIN 3.6 g/dL (3.4-5.0); TOTAL BILIRUBIN 0.4 mg/dL (0.2-1.0); TOTAL PROTEIN 7.3 g/dL (6.4-8.2)
[2021-01-21 03:16] LABS: METHYLMALONIC ACID 87 nmol/L (0-378)
== END ==
LOC: ONCLAB 12:44
PROVIDERS: ATTEND Internal Medicine Hematology & Oncology
DX: E61.1 Iron deficiency (principal)
CPT/HCPCS: 80053; 82607; 82728; 82746; 83540; 83550; 83921; 85025

== ENCOUNTER → 2021-03-17 | Day surgery (SDC) | payer MEDICARE, OTHER ==
[~2021-03-17] VITALS: Ht 165.1 cm; Wt 95.4 kg
[~2021-03-17] MED LIST changes: +HYDROmorphone 2 MG/ML VIAL IVP PRN; +IV RINGERS,LACTATED 1000ML 1,000 ML IV SCH; +LIDOCAINE 2% PF 5 ML VIAL. ONE; +MORPHINE SULFATE 2 MG/ML INJ. IVP PRN; +PROCHLORPERAZINE 10 MG/2 ML VIAL. IVP PRN; +PROPOFOL 10 MG/ML (20ML) VIAL. IV ONE; +fentaNYL PF VIAL 100 MCG/2 ML VIAL IVP PRN
[2021-03-17 10:00] VITALS: BP 176/75
[2021-03-17 11:35] VITALS: BP 149/71
--- NOTE | 2021-03-18 17:10 | PATHOLOGY ---
[facility] Accession Number: [id number] . 01 Material submitted: . PART A: small bowel - SMALL BOWEL BX PART B: ANTRUM - ANTRUM AND BODY BX PART C: esophagus - DISTAL ESOPHAGUS BX. Modifiers: distal PART D: esophagus - MID ESOPHAGUS BX. Modifiers: mid PART E: sigmoid colon - SIGMOID POLYP BX . 01 Clinical history: . LB EGD/COLON . 02 Diagnosis: A. Small bowel biopsy: - No significant pathologic abnormalities. . B. Gastric biopsy, gastric antrum and body: - Superficial congestion and mild chronic inflammation. . C. Esophageal biopsy, distal esophagus: - Segments of mildly hyperplastic squamous esophageal mucosa and submucosal glands showing mild chronic inflammation. . D. Esophageal biopsy, middle esophagus: - Segments of mildly hyperplastic squamous esophageal mucosa. . E. Colon biopsy, sigmoid polyp: - Tubular adenoma (1). - Hyperplastic polyp (1). . (JPM:ajith; 03/18/2021) MBR 03/18/2021 1314 Local . 02 Comment: Sections of the small bowel biopsy reveal segments of duodenal mucosa. Where best oriented, the mucosal villi show no sprue-like changes or significant inflammatory changes. . Sections of the gastric biopsy reveal segments of gastric body mucosa showing superficial congestion and mild chronic inflammation. A properly controlled immunoperoxidase stain for Helicobacter is negative for Helicobacter organisms. . Sections of the distal esophageal biopsy reveal segments of mildly hyperplastic squamous esophageal mucosa with focal attached submucosal glands showing mild chronic inflammation. The findings are consistent with reflux changes. There is no evidence of Barone's change, dysplasia, or malignancy. . Sections of the middle esophageal biopsy reveal segments of focally tangentially oriented mildly hyperplastic squamous esophageal mucosa. There is no evidence of Barone's change, dysplasia or malignancy. . Sections of the sigmoid colon biopsy reveal a single tubular adenoma and a single hyperplastic polyp. There is no high-grade dysplasia or evidence of malignancy. . (JPM:ajith; 03/18/2021) . . Special stain performed: Immunoperoxidase stain for Helicobacter on B1 . 02 Electronically signed: . Anthony Maurer MD, Pathologist NPI- [id number] . 01 Gross description: . A. The specimen is submitted in formalin, labeled "Evanson, Ladonna, small bowel biopsy". Received are 2 segments of pale caban tissue ranging in size from 0.4 to 0.6 cm in maximum dimensions. The specimen is submitted entirely in cassette A1. . B. The specimen is submitted in formalin, labeled "Evanson, Ladonna, antrum and body biopsy". Received are 3 segments of pale caban tissue ranging in size from 0.3 to 0.4 cm in maximum dimensions. The specimen is submitted entirely in cassette B1. . C. The specimen is submitted in formalin, labeled "Evanson, Ladonna, distal esophagus biopsy". Received are 2 segments of pale caban tissue ranging in size from 0.3 to 0.5 cm in maximum dimensions. The specimen is submitted entirely in cassette C1. . D. The specimen is submitted in formalin, labeled "Evanson, Ladonna, mid esophagus biopsy". Received are 2 segments of pale caban tissue ranging in size from 0.4 to 0.5 cm in maximum dimensions. The specimen is submitted entirely in cassette D1. . E. The specimen is submitted in formalin, labeled "Evanson, Ladonna, sigmoid polyp biopsy". Received are 2 segments of pale caban tissue ranging in size from 0.3 to 0.4 cm in maximum dimensions. The specimen is submitted entirely in cassette E1. ([facility]; 03/17/2021) NRI/NRI 03/17/2021 2141 Local . 02 Pathologist provided ICD-10: K29.50, K20.90, D12.5, K63.5 . 02 CPT . 155131, 130734, 687358, 800269, 347763, [id number] Specimen Comment: A courtesy copy of this report has been sent to [phone] Specimen Comment: [phone] Specimen Comment: Report sent to / DR ESPINAL Performed at: [address] [place] [address] [address]vd [address], [place], [place] [id number] MD Yeison Gardner MD Phone: [phone] Performed at: [address] [id number] MD Anthony Maurer MD Phone: [phone]
== END | disposition home or self-care (01) ==
LOC: SURG 09:32
PROVIDERS: ATTEND Internal Medicine Gastroenterology
DX: R10.13 Epigastric pain (principal); D50.9 Iron deficiency anemia, unspecified; K29.50 Unspecified chronic gastritis without bleeding; D12.5 Benign neoplasm of sigmoid colon; K21.00 Gastro-esophageal reflux disease with esophagitis, without bleeding; K57.30 Diverticulosis of large intestine without perforation or abscess without bleeding; K64.8 Other hemorrhoids; I10 Essential (primary) hypertension; E78.00 Pure hypercholesterolemia, unspecified; J44.9 Chronic obstructive pulmonary disease, unspecified; Z87.440 Personal history of urinary (tract) infections; Z87.442 Personal history of urinary calculi; Z96.653 Presence of artificial knee joint, bilateral; Z96.611 Presence of right artificial shoulder joint; Z98.890 Other specified postprocedural states
CPT/HCPCS: 43239; 43248; 45380; 88305; 88342; J2704; 43450; 45378

== ENCOUNTER → 2021-04-20 | Outpatient (CLI) | payer MEDICARE ==
[2021-03-17 11:35] VITALS: BP 149/71
[~2021-04-20] MED LIST changes: -HYDROmorphone 2 MG/ML VIAL IVP PRN; +IOHEXOL 240 MG/ML 50ML VIAL. PO ONE; +IOHEXOL 300 MG/ML 100ML VIAL. IV ONE; -IV RINGERS,LACTATED 1000ML 1,000 ML IV SCH; -LIDOCAINE 2% PF 5 ML VIAL. ONE; -MORPHINE SULFATE 2 MG/ML INJ. IVP PRN; -PROCHLORPERAZINE 10 MG/2 ML VIAL. IVP PRN; -PROPOFOL 10 MG/ML (20ML) VIAL. IV ONE; -fentaNYL PF VIAL 100 MCG/2 ML VIAL IVP PRN
--- NOTE | 2021-04-20 15:40 | KCIC ---
CT of the abdomen and pelvis with contrast 04/20/2021 3:32 PM Indication: Reason: Hx. anemia, polyp found on recent scope. / Spl. Instructions: 100mL Omni 300 / H istory: Comparison study: MRI of the abdomen May 10, 2015 Technique: Multidetector CT imaging of the abdomen and pelvis was performed following the administrat ion of IV contrast. Findings: There is a paraesophageal hernia with the bulk of the stomach being intrathoracic. Some associated at electasis is noted in the lung bases. Liver and gallbladder are otherwise unremarkable. Adrenal gland s are unremarkable. Spleen is unremarkable. Pancreas is unremarkable. Small left renal cyst noted sup eriorly. Calcification noted in the inferior right kidney. There is no evidence of bowel obstruction. Increased stool noted within the colon. There is an endoscopic clip s noted in the approximate junct ion of the descending and sigmoid colon.. Bladder is grossly unremarkable. Cystic lesion in the right adnexa likely an ovarian cyst noted. This measures 2 cm in diameter. No free fluid or free air seen in the abdomen or pelvis. No acute osseous abnormality is seen. IMPRESSION: 1.Paraesophageal hernia with intrathoracic stomach, similar to comparison studies 2. 2 cm cystic lesion, right adnexa. This also most likely an ovarian cyst. CT is limited for evaluat ion. Pelvic ultrasound recommended. 3. Increased stool noted within the colon. Correlate with evidence of constipation. 4. Endoscopic clip noted at the approximate junction of the descending and sigmoid colon CT DOSING PQRS STATEMENT: One or more of the following individualized dose reduction techniques were utilized for this examinat ion: 1. Automated exposure control 2. Adjustment of the mA and/or kV according to patient size 3. Use of iterative reconstruction technique Electronically signed by: Andrea Gonzalez MD (04/20/2021 3:38 PM) [id number]
== END ==
LOC: KCIC CT 12:45
PROVIDERS: ATTEND Internal Medicine Gastroenterology
DX: K44.9 Diaphragmatic hernia without obstruction or gangrene (principal); N28.1 Cyst of kidney, acquired; K59.00 Constipation, unspecified; D64.9 Anemia, unspecified; J98.11 Atelectasis
CPT/HCPCS: 74177; 82565; Q9966; Q9967

== ENCOUNTER → 2021-04-28 | Outpatient (CLI) | payer MEDICARE ==
[2021-03-17 11:35] VITALS: BP 149/71
[~2021-04-28] MED LIST changes: -IOHEXOL 240 MG/ML 50ML VIAL. PO ONE; -IOHEXOL 300 MG/ML 100ML VIAL. IV ONE
[2021-04-28 12:32] LABS: BASO % 1 % (0-3); EOS # 0.3 x10^3/uL (0.0-0.7); EOS % 5 % (0-3); HEMATOCRIT 42.9 % (36.0-47.0); HEMOGLOBIN 14.2 g/dL (12.0-15.5); LYMPH # 1.2 x10^3/uL (1.0-4.8); LYMPH % 22 % (24-48); MEAN CORPUSCULAR HEMOGLOBIN 29 pg (25-35); MEAN CORPUSCULAR HGB CONC 33 g/dL (31-37); MEAN CORPUSCULAR VOLUME 86 fL (79-100); MONO # 0.4 x10^3/uL (0.0-1.1); MONO % 8 % (0-9); NEUT # 3.6 x10^3/uL (1.8-7.7); NEUT % 65 % (31-73); PLATELET COUNT 264 x10^3/uL (140-400); RED BLOOD COUNT 4.97 x10^6/uL (3.50-5.40); RED CELL DISTRIBUTION WIDTH 15.5 % (11.5-14.5); WHITE BLOOD COUNT 5.5 x10^3/uL (4.0-11.0)
[2021-04-28 12:40] LABS: CALCIUM 10.8 mg/dL (8.5-10.1); CREATININE 0.8 mg/dL (0.6-1.0); GFR 69.4; POTASSIUM 4.4 mmol/L (3.5-5.1)
[2021-04-28 12:58] LABS: ALBUMIN 3.7 g/dL (3.4-5.0); TOTAL BILIRUBIN 0.6 mg/dL (0.2-1.0); TOTAL PROTEIN 7.3 g/dL (6.4-8.2)
== END ==
LOC: ONCLAB 12:12
PROVIDERS: ATTEND Internal Medicine Hematology & Oncology
DX: D50.0 Iron deficiency anemia secondary to blood loss (chronic) (principal)
CPT/HCPCS: 36415; 80053; 82728; 83540; 83550; 85025